=== PATIENT | female | born 1965 | race Caucasian/White ===

== ENCOUNTER 2025-03-10 09:17 | Day surgery (SDC) | payer BC ==
[~2025-03-10] VITALS: Ht 170.2 cm; Wt 54.4 kg
[2025-03-10] VITALS (7 sets, daily range): BP systolic 105; BP diastolic 63; PULSE 67–83; RESP 12–20; TEMP 98.1; O2SAT 98–100
[2025-03-10] MEDS ORDERED: SODIUM CHLORIDE LOCK 10 ML ONE (09:49)
[2025-03-10] MEDS: fentaNYL CITRATE 100 MCG/2 ML VL ONE (12:47)
[2025-03-10] MEDS: diphenhydrAMINE HCL 50 MG/1 ML VL ONE (12:47)
[2025-03-10] MEDS: MIDAZOLAM HCL 5 MG/ML-1ML VIAL ONE (12:47)
--- NOTE | 2025-03-10 13:09 | DVHOP2 ---
Operative Report DATE OF OPERATION: 03/10/25 PROCEDURE: Colonoscopy with cold biopsy. PREOPERATIVE INDICATION: The patient is a 59 -year-old female undergoing colonoscopy for colon cancer screening with family history of colon cancer POSTOPERATIVE DIAGNOSES: 1. Minimal residual proctosigmoiditis with some from which biopsies were obtained 2. Mild diverticulosis seen in the right colon 3. Mild tortuosity and redundancy of the colon 4. Trace to 1+ internal hemorrhoids otherwise completely normal colonoscopy examination up to the cecum PROCEDURE PERFORMED BY: Gustavo Mcnair M.D. SCOPE: Olympus videocolonoscope. ASA CLASS: 2. PREOPERATIVE MEDICATIONS: Versed 5 mg, Fentanyl 100 mcg, Benadryl 50 mg PROCEDURE IN DETAIL: After obtaining an informed consent, the patient was placed on left lateral decubitus position. She was then sedated with the above medications. A rectal examination was performed that was normal. The colonoscope was then passed through the anus into the rectosigmoid and through the descending, transverse, and ascending colon up to the cecum with visualization of the appendiceal orifice, base of the cecum and the ileocecal valve. The colonoscope was then withdrawn. No polyps or masses were seen. Two ascending colon diverticular openings were seen Patient had mild tortuosity and redundancy of the colon. There was minimal changes of residual proctosigmoiditis and rectosigmoid biopsies were obtained On retroflexion patient had trace to 1+ internal hemorrhoids The patient tolerated the procedure well without difficulty. WITHDRAWAL TIME: 6 minutes QUALITY OF THE PREP: Kenly Bowel Prep score: 9. COMPLICATIONS : None SPECIMENS: Rectosigmoid biopsies DISPOSITION: Stable D/C to home PLAN: 1. Repeat colonoscopy base on biopsy result likely in 5 years because of family history of colon cancer 2. Resume GI soft diet advance as tolerated 3. Increase fluid and fiber intake 4. Outpatient follow up with me in 4-6 weeks to review results and discuss further management GUSTAVO MCNAIR MD Mar 10, 2025 13:09
== END 2025-03-10 14:50 | disposition home or self-care (01) ==
LOC: GI 09:17
PROVIDERS: ATTEND Internal Medicine Gastroenterology
DX: Z12.11 Encounter for screening for malignant neoplasm of colon (principal); K63.89 Other specified diseases of intestine; K57.30 Diverticulosis of large intestine without perforation or abscess without bleeding; K64.8 Other hemorrhoids; Z80.0 Family history of malignant neoplasm of digestive organs; Z88.0 Allergy status to penicillin; Z88.1 Allergy status to other antibiotic agents; Z88.5 Allergy status to narcotic agent; Z79.899 Other long term (current) drug therapy
CPT/HCPCS: 45380; 88305; A4649; J1200; J2250; J3010; J7030; 99152